=== PATIENT | male | born 1985 | race Two or more races ===

== ENCOUNTER → 2021-06-21 | Day surgery (SDC) | payer SELFPAY ==
[~2021-06-21] VITALS: Ht 165.1 cm; Wt 64.0 kg
[~2021-06-21] MED LIST: IV RINGERS,LACTATED 1000ML 1,000 ML IV SCH; LIDOCAINE 2% PF 5 ML VIAL. ONE; OMEP20CA16 PO; PROPOFOL 10 MG/ML (20ML) VIAL. IV ONE
[2021-06-21 10:51] VITALS: BP 126/84
--- NOTE | 2021-06-21 11:46 | PREOP HP ---
DATE OF SERVICE: 06/21/2021 DATE OF PROCEDURE: 06/21/2021. REQUESTING PHYSICIAN: Guillaume Dye MD. PRIMARY CARE PHYSICIAN: Guillaume Dye MD. REASON FOR PROCEDURE: Epigastric pain and abdominal pain and history of Helicobacter. HISTORY OF PRESENT ILLNESS: This is a 36-year-old gentleman who presents with epigastric pain. He has a history of a positive Helicobacter IgG 04/07/2021 for which he took triple therapy. He is scheduled to undergo upper and lower endoscopy for further evaluation. ALLERGIES: None. PAST MEDICAL HISTORY: Helicobacter. SOCIAL HISTORY: No tobacco, alcohol or IV drug abuse. REVIEW OF SYSTEMS: A 13-point review of systems was done, positive as per HPI and otherwise negative. PHYSICAL EXAMINATION: VITAL SIGNS: He is afebrile. Vital signs are stable. GENERAL: He is a well-developed, well-nourished male in no apparent distress. HEENT: Oropharynx is clear. CARDIOVASCULAR: S1, S2. LUNGS: Clear. ABDOMEN: Normoactive bowel sounds, soft, nontender, nondistended. EXTREMITIES: No edema. NEUROLOGIC: Awake, alert and oriented x 3. ASSESSMENT AND PLAN: 1. Abdominal pain. 2. History of Helicobacter. The risks and benefits of the upper and lower endoscopy were explained. He has agreed to proceed. We are currently waiting on his rapid COVID test given that he is not vaccinated. If that is negative, then we will proceed with examination. COURTNEY/DEEPTI/RONI DR: COURTNEY/jed TID: [id number]
[2021-06-21 12:35] VITALS: BP 136/79
--- NOTE | 2021-06-25 17:06 | PATHOLOGY ---
[facility] Accession Number: [id number] . 01 Material submitted: . PART A: small bowel - SMALL BOWEL BIOPSY PART B: stomach - ANTRUM AND BODY BIOPSY PART C: esophagus - DISTAL ESOPHAGUS BIOPSY. Modifiers: distal PART D: rectum - RECTAL POLYPS . 01 Clinical history: . EGD/COLONOSCOPY . 02 Diagnosis: A. Small bowel biopsies: - No diagnostic abnormalities. . B. Gastric biopsies, gastric antrum and gastric body: - Chronic gastritis, focally active, mild to moderate. . C. Esophageal biopsies, distal esophagus: - Reflux changes. . D. Colorectal biopsies, rectal polyps: - Hyperplastic polyps. LBQ 06/25/2021 1011 Local . 02 Comment: Sections of the small bowel biopsy reveal segments of duodenal and small intestine mucosa. One of the biopsy segments contains a hyperplastic mucosal-associated lymphoid aggregate. Where best oriented, the mucosal villi show no sprue-like changes or significant inflammatory changes. . Sections of the gastric biopsy reveal segments of gastric antral mucosa showing congestion and focally active mild to moderate chronic inflammation. A properly controlled immunoperoxidase stain for Helicobacter is negative for Helicobacter organisms. . Sections of the distal esophageal biopsy reveal segments of hyperplastic squamous esophageal mucosa and esophagogastric mucosa showing mild to moderate chronic inflammation. The findings are consistent with reflux changes. There is no evidence of Matute's change, dysplasia, or malignancy. . Sections of the rectal biopsy reveal hyperplastic polyps. There are no adenomatous changes or evidence of malignancy. (JPM/db; 06/25/2021) . Special stain performed: Immunoperoxidase stain for Helicobacter on B1 . Electronically signed: . Ru Garcia MD, Pathologist NPI- [id number] . 01 Gross description: . A. The specimen is received in formalin, labeled "Daniel Self, small bowel biopsy". Received are four segments of pale hensley tissue ranging in size from 0.3-0.5 cm in maximum dimensions. The specimen is submitted entirely in cassette A1. . B. The specimen is received in formalin, labeled "Daniel Self, antrum and body biopsy". Received are three segments of pale hensley tissue ranging in size from 0.1-0.5 cm in maximum dimensions. The specimen is submitted entirely in cassette B1. . C. The specimen is received in formalin, labeled "Daniel Self, distal esophagus biopsy". Received are two segments of pale hensley tissue measuring 0.2 and 0.6 cm in maximum dimensions. The specimen is submitted entirely in cassette C1. . D. The specimen is received in formalin, labeled "Daniel Self, rectal polyps". Received are three segments of pale hensley tissue ranging in size from 0.1-0.4 cm in maximum dimensions. The specimen is submitted entirely in cassette D1. ([facility]; 06/22/2021) QAC/QAC 06/22/2021 1044 Local . 02 Pathologist provided ICD-10: K29.50, K62.1, Z12.11 . 02 CPT . 835331, 634600, 773879, [id number], [id number] Specimen Comment: Report sent to Performed at: 01 [facility] [address] [facility] [address], [place] [id number] MD Omero Carias MD Phone: [phone] Performed at: 02 [facility] [address], [place] [id number] MD Ru Garcia MD Phone: [phone]
== END | disposition home or self-care (01) ==
LOC: ENDOS 09:50
PROVIDERS: ATTEND Internal Medicine Gastroenterology
DX: R10.84 Generalized abdominal pain (principal); R10.13 Epigastric pain; K29.50 Unspecified chronic gastritis without bleeding; K62.1 Rectal polyp; K64.0 First degree hemorrhoids; K21.00 Gastro-esophageal reflux disease with esophagitis, without bleeding; B96.81 Helicobacter pylori [H. pylori] as the cause of diseases classified elsewhere; K63.89 Other specified diseases of intestine; K31.89 Other diseases of stomach and duodenum; E78.00 Pure hypercholesterolemia, unspecified; Z79.899 Other long term (current) drug therapy; Z98.890 Other specified postprocedural states
CPT/HCPCS: 43239; 45380; 88305; 88342; J2704; 45384